=== PATIENT | female | born 1965 | race Caucasian/White ===

== ENCOUNTER → 2018-06-01 13:56 | Outpatient (CLI) | payer OTHER, SELFPAY ==
--- NOTE | 2018-06-01 | DI.RAD.S_ITS ---
PROCEDURE: XR CHEST 2V INDICATIONS: Persistant Cough TECHNIQUE: 2 views of the chest were acquired. COMPARISON: None. FINDINGS: Surgical changes and devices: None. Lungs and pleura: There is bilateral prominence of pulmonary vasculature. There is mild bilateral bronchial wall thickening. Perihilar reticular and hazy bibasilar pulmonary opacities are noted. No pleural effusions or pneumothorax. Mediastinum: Mediastinal contours are normal. Heart size is normal. Bones and chest wall: Mild multilevel degenerative changes of the thoracic spine. IMPRESSION: Findings compatible with minimal pulmonary edema and bibasilar atelectasis versus pneumonia (possibly atypical). Consider follow up chest radiographs to demonstrate resolution/stability. Dictated by: Abdiaziz Hood M.D. on 06/02/2018 at 5:18 Approved by: Abdiaziz Hood M.D. on 06/02/2018 at 5:27
== END ==
PROVIDERS: PCP Internal Medicine; Visit Provider Internal Medicine
DX: R05 Cough (principal); M47.814 Spondylosis without myelopathy or radiculopathy, thoracic region
CPT/HCPCS: 71046

== ENCOUNTER → 2018-08-07 09:39 | Outpatient (CLI) | payer OTHER, SELFPAY ==
--- NOTE | 2018-08-07 | DI.MG.S_ITS ---
BILATERAL DIGITAL SCREENING MAMMOGRAM 3D/2D WITH CAD: 08/07/2018 CLINICAL: Routine screening. Family history of breast cancer. Comparison is made to exams dated: 08/26/2014 mammogram and 09/07/2015 mammogram - [facility]. There are scattered fibroglandular elements in both breasts. Current study was also evaluated with a Computer Aided Detection (CAD) system. No significant masses, calcifications, or other findings are seen in either breast. There has been no significant interval change. IMPRESSION: NEGATIVE There is no mammographic evidence of malignancy. A 1 year screening mammogram is recommended. This exam was interpreted at Station ID: [id number]. NOTE: For mammograms, a report in lay terms will be sent to the patient. Approximately 15% of breast malignancies will not be visualized mammographically. In the management of a palpable breast mass, a negative mammogram must not discourage biopsy of a clinically suspicious lesion. Electronically Signed By: Clemencia richard/tere:08/07/2018 11:22:37 letter sent: Normal Exam ACR BI-RADS Category 1: Negative 3341F
== END ==
PROVIDERS: PCP Internal Medicine; Visit Provider Internal Medicine
DX: Z12.31 Encounter for screening mammogram for malignant neoplasm of breast (principal); Z80.3 Family history of malignant neoplasm of breast
CPT/HCPCS: 77063; 77067

== ENCOUNTER 2018-11-21 06:12 | Day surgery (SDC) | payer OTHER, SELFPAY ==
--- NOTE | 2018-11-21 | PATH_ITS ---
[facility] Accession Number: [id number] . 01 Material submitted: . PART A: colon - COLON POLYP AT 70 CM PART B: colon - COLON POLYP AT 50 CM . 01 Clinical history: . ENCOUNTER FOR SCREENING FOR MALIGNANT NEOPLASM . 02 Diagnosis: A. Biopsy, Colon Polyp at 70 cm: Fragments of colon mucosa with prominent mucosal lymphoid aggregate. Negative for evidence of neoplasm on multiple sections. . B. Biopsy, Colon Polyp at 50 cm: Tubular adenoma. MRV/11/22/2018 . 02 Electronically signed: . Michael French MD, Pathologist NPI- [id number] . 01 Gross description: . Part A: COLON POLYP AT 70 CM: Received in formalin is 1 fragment(s) of coombs, soft tissue measuring 0.3 x 0.3 x 0.2 cm which is entirely submitted and submitted entirely in 1 cassette(s) Part B: COLON POLYP AT 50 CM: Received in formalin is 1 fragment(s) of coombs, soft tissue measuring 0.4 x 0.4 x 0.4 cm which is entirely submitted and submitted entirely in 1 cassette(s) /DMC /DMC . 02 Pathologist provided ICD-10: D12.4 . 02 CPT . 866501, [id number] Performed at: 01 [facility] [address], [place], [place] [id number] MD Cristian Lema MD Phone: [phone] Performed at: 02 [facility] [address] [place], [place] [id number] MD Nory Callaway MD Phone: [phone]
[2018-11-21 07:33] VITALS: BP 125/80; PULSE 68; RESP 14; TEMP 36.3; O2SAT 98; BMI 31.7
--- NOTE | 2018-11-21 07:41 | PM.HP.1 ---
History of Present Illness History of Present Illness Date Patient Seen: 11/21/18 Time Patient Seen: 07:41 Chief complaint: [id number] Narrative: The patient is a woman here for 1st colonoscopy. She is 53. No family history of colon cancer. 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) Shortness of breath (Acute) Surgical History Hx of appendectomy (Resolved) Hx of cholecystectomy (Resolved) Hx of laparoscopy (Resolved) Family History Mother Hypertension Diabetes mellitus Father Hypertension Heart disease Stroke Sister Cancer Grandfather Stroke Heart disease Grandmother Heart disease Social History household members: family and children occupational status: disabled Smoking Status: Never smoker alcohol intake: current substance use type: does not use Family & Social History Family History Mother Hypertension Diabetes mellitus Father Hypertension Heart disease Stroke Sister Cancer Grandfather Stroke Heart disease Grandmother Heart disease Social History: household members family,children Tobacco & Substance use: Smoking Status Never smoker alcohol intake current Meds Home Medications and Allergies Home Medications Medication Instructions Recorded Confirmed Type apremilast 30 mg tablet 30 mg PO BID 08/27/18 11/21/18 History gabapentin 300 mg capsule 300 mg PO DAILY 08/27/18 11/21/18 History ixekizumab 80 mg/mL subcutaneous 80 mg SUBCUT Q4W 08/27/18 11/21/18 History auto-injector meloxicam 15 mg tablet 15 mg PO DAILY 08/27/18 11/21/18 History metformin 1,000 mg tablet 500 mg PO BID 08/27/18 11/21/18 History methadone 5 mg tablet 5 mg PO Q6H 08/27/18 11/21/18 History montelukast 10 mg tablet 10 mg PO QPM 08/27/18 11/21/18 History omega-3 fatty acids 1,000 mg 2,000 mg PO DAILY 08/27/18 11/21/18 History capsule simvastatin 20 mg tablet 20 mg PO BEDTIME 08/27/18 11/21/18 History vitamin B12 0.5 mg-folic acid 1 mg 1 tab PO DAILY 08/27/18 11/21/18 History tablet albuterol sulfate [Ventolin HFA] 2 inh INHALATION Q6H PRN 11/21/18 11/21/18 History cholecalciferol (vitamin D3) 125 unit PO 3XW 11/21/18 11/21/18 History [Vitamin D3] fluticasone propion-salmeterol 1 inh INHALATION BID 11/21/18 11/21/18 History loratadine 10 mg PO DAILY 11/21/18 11/21/18 History Allergies Allergy/AdvReac Type Severity Reaction Status Date / Time Sulfa (Sulfonamide Allergy Unknown Hives Verified 11/21/18 07:23 Antibiotics) prednisone AdvReac Unknown Verified 11/21/18 07:23 Review of Systems Review of Systems Narrative: Patient has intermittent chest pain thought to be related to her sarcoid. She did have a cardiac evaluation that was negative. Patient has chronic psoriasis on immunosuppression of 3 medications. Patient gets short of breath also related to her sarcoid. No black or bloody bowel movements. No seizures or blackouts. Exam Vital Signs (past 8 hours): - 11/21/18 07:33 Temperature 97.4 F L Pulse Rate 68 Respiratory Rate 14 Blood Pressure 125/80 Pulse Oximetry 98 Oxygen Delivery Method Room Air Narrative Exam Narrative: Pleasant cooperative patient no apparent distress. Lungs are clear to auscultation. No rales or rhonchi. Heart regular rate and rhythm no murmur gallop. Abdomen is soft nontender without mass. No obvious hernias. Patient is alert and oriented x3. Visible psoriasis scattered about. Assessment & Plan Assessment & Plan narrative: The patient for a screening colonoscopy. I have discussed the procedure with them. Risks of bleeding, perforation which would necessitate major operation, failure to find remove all lesions, the potential tattoo were all discussed. All questions were answered. They wished to proceed.
--- NOTE | 2018-11-21 07:43 | PM.PREOP ---
Pre-operative Note Interval Note History & Physical reviewed/Exam performed by Physician: Yes Changes to H&P: No ASA Class (for procedural sedation): III
[2018-11-21] MEDS: SODIUM CHLORIDE 0.9% 1,000 ML 200 ML IV (07:46)
[2018-11-21] MEDS: LIDOCAINE JELLY 2% 5 ML 1 APPLIC TOP (07:55)
[2018-11-21] MEDS: fentaNYL 250 MCG/5 ML INJ IV (08:02)
[2018-11-21] MEDS: MIDAZOLAM 5 MG/5 ML VIAL IV (08:02)
--- NOTE | 2018-11-21 08:25 | PM.OP.ENDO ---
Operative Date/Time/Diagnoses Date of procedure: 11/21/18 Time of procedure: 08:25 Pre-op diagnosis: Screening exam Post-op diagnosis: same (Two small polypoidal lesions) Procedure & Clinicians Study performed: Colonoscopy with cold biopsy and hot snare polypectomy Same procedure as scheduled: Yes Indications: Screening Surgeon: Jadiel Serrano Procedure Notes SCOAP/Timeout: Performed Procedure in detail: The patient was placed in the left lateral decubitus position and underwent IV sedation directed by the surgeon consisting of fentanyl and Versed. Digital exam was unremarkable except her perianal skin is rather raw. The scope was inserted and advanced through the rectum into the sigmoid, descending, transverse, and ascending colon. Patient had a few sigmoid diverticuli. The cecum was reached identified by the ileocecal valve and the appendiceal opening. The scope was gradually brought out. Polyps were found at 70 cm and 50 cm from the anal verge. The 1st was removed with cold biopsy forceps but there was some persistent dripping of blood and a small hematoma began to form. I cauterized the area and all of this ceased. The 2nd lesion was removed with a hot snare. The scope was backed out. The scope ultimately was retroflexed in the rectum. The appearance was normal. The scope was removed and the patient tolerated the procedure well. Prep is excellent Scope withdrawal time: 10 minutes(16 total) Sedation minutes: 25 Findings: diverticulosis (A few sigmoid) and polyp (Two small) Specimen(s): other (Polyps) Complications: none Post-procedure Recommendations: Colonscopy in 5 years Follow up: as needed Disposition: PACU
[2018-11-21 08:29] VITALS: BP 117/76; PULSE 63; RESP 11; TEMP 36.4; O2SAT 95
[2018-11-21 08:34] VITALS: BP 114/75; PULSE 62; RESP 16; O2SAT 94
[2018-11-21 08:40] VITALS: BP 119/77; PULSE 61; RESP 20; TEMP 36.2; O2SAT 93
[2018-11-21 08:45] VITALS: BP 109/65; PULSE 63; RESP 15; TEMP 37.1; O2SAT 94
[2018-11-21 09:07] VITALS: BP 111/71; PULSE 65; RESP 15; TEMP 36.2; O2SAT 96
== END 2018-11-21 09:12 | disposition home or self-care (01) ==
PROVIDERS: PCP Internal Medicine; Visit Provider Specialist
PROC: 0DJD8ZZ Inspection of Lower Intestinal Tract, Via Natural or Artificial Opening Endoscopic (ICD-10-PCS; CPT 45378; principal; 2018-11-21 07:45)
DX: Z12.11 Encounter for screening for malignant neoplasm of colon (principal); K57.30 Diverticulosis of large intestine without perforation or abscess without bleeding; R73.03 Prediabetes; I10 Essential (primary) hypertension; Z79.84 Long term (current) use of oral hypoglycemic drugs; J45.909 Unspecified asthma, uncomplicated; D12.4 Benign neoplasm of descending colon
CPT/HCPCS: 45385; 45380; 99152; J2250; J3010

== ENCOUNTER → 2021-07-04 09:44 | Outpatient (CLI) | payer OTHER, SELFPAY ==
--- NOTE | 2021-07-04 | DI.CT.S_ITS ---
PROCEDURE: CT CHEST WO CON INDICATIONS: UNRESOLVED PNEUMONIA TECHNIQUE: Noncontrast 5 mm thick sections acquired from the pulmonary apices to the posterior costophrenic angles. 1 mm lung window, 5 mm thick coronal and sagittal and 7 mm axial MIP reformats were then acquired. For radiation dose reduction, the following was used: automated exposure control, adjustment of mA and/or kV according to patient size. COMPARISON: [facility], RG, CT ANGIO CHEST, 05/04/2021, 5:37. [facility], CT, CT HIGH RESOLUTION CHEST, 12/31/2020, 14:02. [facility], CT, CT CHEST WITHOUT CONTRAST, 05/02/2019, 10:50. [facility], CT, CT CHEST ABDOMEN PELVIS WITH CONTRAST, 01/05/2020, 13:29. FINDINGS: Image quality: Excellent. Lungs and pleura: No acute air space opacities. Resolution of ground-glass opacity seen in the most recent previous CT, a CTA chest dated 05/04/2021. Developing interstitial changes in the lower lobes bilaterally may potentially represent developing early pulmonary interstitial fibrosis. A 6 mm right upper lobe pulmonary nodule on current image 74/3 is stable compared to the 2 most recent prior studies. A 5 mm medial right middle lobe pulmonary nodule on current image 171/3 is stable compared to the 2 most recent prior studies. No pleural effusions or pneumothorax. Central and peripheral airways are patent and normal in caliber. Mediastinum: Heart size is normal. No pericardial effusion. No mediastinal adenopathy by size criteria. Numerous calcified bilateral hilar and mediastinal lymph nodes, consistent with a clinical diagnosis of sarcoidosis. The amount of calcifications present within the mediastinal and hilar adenopathy has significantly progressed over time. Thoracic aorta and central pulmonary arteries are normal in size. Esophagus is normal in caliber. No hiatal hernia. Bones and chest wall: No suspicious bony lesions. No vertebral body compression fractures. No axillary or supraclavicular adenopathy by size criteria. Thyroid gland is unremarkable as visualized . Abdomen: In numeral pole previous low-density lesions in the liver and spleen are not appreciated on this current noncontrast study. Remote cholecystectomy. IMPRESSION: 1. Pulmonary nodules are stable compared to the 2 most recent prior studies. 2. Findings are consistent with the patient's clinical history of sarcoidosis. Over time, the mediastinal and hilar lymph nodes, which are symmetrical in appearance, have developed increasing calcifications. 3. Resolution of acute inflammation noted on the most recent prior study. 4. Question developing early pulmonary interstitial fibrosis. Comment: Consider follow-up chest CT in 12 months to demonstrate continued stability of the pulmonary nodules. Dictated by: Elkin Duvall M.D. on 07/04/2021 at 10:25 Approved by: Elkin Duvall M.D. on 07/04/2021 at 10:40
== END ==
PROVIDERS: PCP Internal Medicine; Referring Provider Internal Medicine Critical Care Medicine; Visit Provider Internal Medicine Critical Care Medicine
DX: J18.9 Pneumonia, unspecified organism (principal); R91.8 Other nonspecific abnormal finding of lung field; D86.9 Sarcoidosis, unspecified
CPT/HCPCS: 71250

== ENCOUNTER → 2022-09-02 10:01 | Outpatient (CLI) | payer OTHER, SELFPAY ==
--- NOTE | 2022-09-02 10:04 | DI.MG.S_ITS ---
BILATERAL DIGITAL SCREENING MAMMOGRAM 3D/2D WITH CAD: 09/02/2022 CLINICAL: Routine screening. Family history of breast cancer. Comparison is made to exams dated: 08/07/2018 mammogram - [facility], 09/07/2015 mammogram, and 08/26/2014 mammogram - [facility]. Both breasts are almost entirely fatty (category a/<25% glandular tissue). Current study was also evaluated with a Computer Aided Detection (CAD) system. No significant masses, calcifications, or other findings are seen in either breast. There has been no significant interval change. IMPRESSION: NEGATIVE There is no mammographic evidence of malignancy. A 1 year screening mammogram is recommended. Based on the Tyrer Cuzick model (a risk assessment model) the patient's lifetime risk is 11.5% and her 10 year risk is 3.9%. According to the ACR, ACS, and NCCN guidelines, an annual breast MRI exam along with mammogram is recommended if the patient's lifetime risk is 20% or greater. This exam was interpreted at Station ID: [id number]. NOTE: For mammograms, a report in lay terms will be sent to the patient. Approximately 15% of breast malignancies will not be visualized mammographically. In the management of a palpable breast mass, a negative mammogram must not discourage biopsy of a clinically suspicious lesion. Electronically Signed By: Clemencia richard/tere:09/04/2022 10:16:45 letter sent: Normal Exam ACR BI-RADS Category 1: Negative 3341F
== END ==
PROVIDERS: PCP Internal Medicine; Referring Provider Internal Medicine; Visit Provider Internal Medicine
DX: Z12.31 Encounter for screening mammogram for malignant neoplasm of breast (principal); Z80.3 Family history of malignant neoplasm of breast
CPT/HCPCS: 77063; 77067

== ENCOUNTER → 2023-04-25 09:21 | Outpatient (CLI) | payer OTHER, SELFPAY ==
--- NOTE | 2023-04-25 09:24 | DI.CT.S_ITS ---
PROCEDURE: CT CHEST HIGH RESOLUTION INDICATIONS: Sarcoidosis, unspecified TECHNIQUE: Noncontrast 1.0 and 5.0 mm thick contiguous axial sections from the pulmonary apex to the posterior costophrenic angles, with 7 mm thick coronal and sagittal MIP reformats. 1 mm thick dynamic expiratory images acquired through the upper, mid, and lower lungs. 1.0 mm thick axial sections acquired from the blanche to the posterior costophrenic angles in the prone end-inspiration position. For radiation dose reduction, the following was used: automated exposure control, adjustment of mA and/or kV according to patient size. COMPARISON: [facility], CT, CT CHEST ABDOMEN PELVIS WITH CONTRAST, 02/07/2022, 15:39. FINDINGS: Image quality: Diagnostic Lungs and pleura: On expiratory images, air trapping is seen, most significantly in the left upper lobe. There is moderate involvement elsewhere. No pleural effusions. Segmental atelectasis versus opacity is seen in the lingula, which is increased from prior imaging. Other areas of suspected scarring, likely similar compared to prior. No dense consolidation. No honeycombing or peripheral reticulation. These findings persist on prone imaging. No new or enlarging pulmonary nodules. Stable small nodules are again seen, for example the right apex 4/35. Mediastinum, heart, and esophagus: Numerous calcified mediastinal hilar lymph nodes again seen. Heart size is at the upper limit of normal. Chest wall and thyroid: Unremarkable chest wall and thyroid Upper abdomen: Gallbladder is absent. No gross abnormality on these noncontrast images. Bones: Suspected lumbar vertebral hemangioma. No acute or suspicious osseous finding. IMPRESSION: Increased opacity, probably segmental atelectasis in the lingula versus infection/inflammation such as from aspiration. Moderate diffuse air trapping, particularly in the left upper lobe. This is often seen with chronic small airways disease such as hypersensitivity pneumonitis. No new or enlarging pulmonary nodules. No significant dave lymphatic pulmonary nodularity. Relatively unchanged mediastinal hilar lymph nodes with calcifications compatible with reported sarcoidosis. Consider future followup to assess for progression and any pulmonary nodules. ATS 2018 HRCT classification: Not compatible with UIP. Dictated by: Fabian Jordan M.D. on 04/25/2023 at 12:33 Approved by: Fabian Jordan M.D. on 04/25/2023 at 12:41
== END ==
PROVIDERS: PCP Family Medicine; Referring Provider Internal Medicine; Visit Provider Internal Medicine
DX: D86.9 Sarcoidosis, unspecified (principal); R91.8 Other nonspecific abnormal finding of lung field
CPT/HCPCS: 71250

== ENCOUNTER 2023-08-30 08:30 | Outpatient (RCR) | payer OTHER, SELFPAY | END 2023-08-30 10:30 | LOC: PUL 08:30 | PROVIDERS: PCP Internal Medicine; Referring Provider Internal Medicine; Visit Provider Internal Medicine | DX: J98.4 Other disorders of lung (principal); I27.20 Pulmonary hypertension, unspecified | CPT/HCPCS: G0237; G0238 ==